=== PATIENT | male | born 1995 | race Caucasian/White ===

== ENCOUNTER 2017-11-26 14:02 | Emergency (ER) | payer OTHER ==
[~2017-11-26] VITALS: Ht 167.6 cm; Wt 72.6 kg
[2017-11-26] MEDS ORDERED: IBUPROFEN 800800 M1 PO (16:09)
[2017-11-26] MEDS ORDERED: CIPRO500 MG PO (16:09)
[2017-11-26 17:11] VITALS: BP 125/81
== END 2017-11-26 16:17 | disposition home or self-care (01) ==
LOC: ER 14:02
DX: S91.341A Puncture wound with foreign body, right foot, initial encounter (principal); W45.0XXA Nail entering through skin, initial encounter; Y92.89 Other specified places as the place of occurrence of the external cause; Y93.89 Activity, other specified; Y99.8 Other external cause status